=== PATIENT | male | born 1995 | race Two or more races ===

== ENCOUNTER 2020-01-10 14:34 | Emergency (ER) | payer SELFPAY ==
[~2020-01-10] VITALS: Ht 182.9 cm; Wt 65.8 kg
[2020-01-10 15:18] VITALS: BP 135/57
[2020-01-10] MEDS ORDERED: ACETAMINOPHEN/CODEINE#3 (300/30mg) TAB PO ONE (16:15)
== END 2020-01-10 16:26 | disposition home or self-care (01) ==
LOC: ER 14:34
DX: S43.102A Unspecified dislocation of left acromioclavicular joint, initial encounter (principal); W01.0XXA Fall on same level from slipping, tripping and stumbling without subsequent striking against object, initial encounter; Y93.89 Activity, other specified; Y92.89 Other specified places as the place of occurrence of the external cause; Y99.8 Other external cause status
CPT/HCPCS: 73030